=== PATIENT | male | born 1935 | race Caucasian/White ===

== ENCOUNTER 2018-12-13 14:51 | Inpatient (IN) | payer MEDICARE ==
[~2018-12-13] VITALS: Ht 170.2 cm; Wt 50.6 kg
[2018-12-13] VITALS (9 sets, daily range): BP systolic 174–192; BP diastolic 91–116
[2018-12-13 17:30] LABS: BASOPHILS % (AUTO) 0 % (0-10); EOSINOPHILS % (AUTO) 0 % (0-10); HEMATOCRIT 31 % (40-54); HEMOGLOBIN 9.6 G/DL (13.3-17.7); LYMPHOCYTES # (AUTO) 0.1 X 10^3 (1.0-4.0); LYMPHOCYTES % (AUTO) 1 % (12-44); MEAN CORPUSCULAR HEMOGLOBIN 30 PG (25-34); MEAN CORPUSCULAR HGB CONC 31 G/DL (32-36); MEAN CORPUSCULAR VOLUME 95 FL (80-99); MEAN PLATELET VOLUME 8.7 FL (7.4-10.4); MONOCYTES # (AUTO) 0.3 X 10^3 (0.0-1.0); MONOCYTES % (AUTO) 3 % (0-12); NEUTROPHILS # (AUTO) 7.4 X 10^3 (1.8-7.8); NEUTROPHILS % (AUTO) 95 % (42-75); PLATELET COUNT 290 10^3/uL (130-400); RED BLOOD COUNT 3.24 10^6/uL (4.35-5.85); RED CELL DISTRIBUTION WIDTH 14.5 % (10.0-14.5); WHITE BLOOD COUNT 7.8 10^3/uL (4.3-11.0)
--- NOTE | 2018-12-13 17:40 | Diagnostic Imaging Report ---
EXAM: CHEST 1 VIEW, AP/PA ONLY INDICATION: Left lower quadrant pneumonia. COMPARISON: None. FINDINGS: Normal heart size and pulmonary vascularity. Calcified aorta. Bilateral calcified granulomas. No dense consolidation, pleural effusion or pneumothorax. No acute osseous findings. IMPRESSION: No acute cardiopulmonary findings. Dictated by: Dictated on workstation # [id number]
[2018-12-13 17:50] LABS: ALANINE AMINOTRANSFERASE 8 U/L (0-55); ALBUMIN 3.2 GM/DL (3.2-4.5); ALKALINE PHOSPHATASE 73 U/L (40-136); BILIRUBIN,TOTAL 0.2 MG/DL (0.1-1.0); BUN/CREATININE RATIO 14; CALCIUM 8.7 MG/DL (8.5-10.1); CARBON DIOXIDE 21 MMOL/L (21-32); CHLORIDE 99 MMOL/L (98-107); CREATININE SERUM 0.98 MG/DL (0.60-1.30); GFR ESTIMATED > 60; GLUCOSE 109 MG/DL (70-105); POTASSIUM 4.1 MMOL/L (3.6-5.0); SODIUM 132 MMOL/L (135-145); TOTAL PROTEIN 6.2 GM/DL (6.4-8.2)
[2018-12-13 17:54] LABS: BAND NEUTROPHILS 5 %; BASOPHILS % (MANUAL) 0 %; EOSINOPHILS % (MANUAL) 0 %; LYMPHOCYTES % (MANUAL) 2 %; MONOCYTES % (MANUAL) 4 %; NEUTROPHILS % (MANUAL) 89 %; RBC MORPH NORMAL
[2018-12-13] MEDS ORDERED: ASPI-586 PO (18:44)
[2018-12-13] MEDS ORDERED: FENT1PAT58 TD (18:44)
[2018-12-13] MEDS ORDERED: HYDR-3820 PO (18:44)
[2018-12-13] MEDS ORDERED: ONDA8TAB13 PO (18:44)
[2018-12-13] MEDS ORDERED: ATOR10TA66 PO (18:44)
[2018-12-13] MEDS ORDERED: POTA20TA15 PO (18:44)
[2018-12-13] MEDS ORDERED: FENO145T37 PO (18:44)
[2018-12-13] MEDS ORDERED: FLUT9.9S NS (18:44)
[2018-12-13] MEDS ORDERED: FLUT1DIS26 IH (18:44)
[2018-12-13] MEDS ORDERED: LISI-556 PO (18:44)
[2018-12-13] MEDS ORDERED: AZITHROMYCIN INJECTION 500 MG in NS (IVPB) 250 ML IV ONE (18:45)
[2018-12-13] MEDS ORDERED: fentaNYL PATCH 50 MCG (DURAGESIC) TD SCH (19:00)
--- NOTE | 2018-12-13 20:31 | Progress Note-Hospitalist ---
Progress Note 83 yo male accepted from [facility] with exacerbation of COPD, with LLL pneumonia on CT. Has home O2 and now requiring more O2 and febrile with elevated WBC. Needs inpatient for IV abx and further treatment and evaluation. YEVGENIY MOODY MD Dec 13, 2018 20:31
[2018-12-13] MEDS ORDERED: lisINopril 5 MG (PRINIVIL) TABLET PO ONE (20:45)
[2018-12-13] MEDS ORDERED: ATORVASTATIN 10 MG (LIPITOR) TABLET PO SCH (21:00)
[2018-12-13] MEDS ORDERED: RT-ALBUTEROL/IPRATROPIUM 3 ML (DUONEB) VIAL INH PRN (21:00)
[2018-12-13] MEDS ORDERED: cefTRIAXone FOR IV USE 1,000 MG in NS (IVPB) 50 ML IV SCH (21:00)
[2018-12-13] MEDS: HYDROcodone/APAP 10 MG/325 MG (LORTAB) TAB PO PRN (21:27)
[2018-12-13] MEDS: lisINopril 5 MG (PRINIVIL) TABLET PO SCH (21:45)
[2018-12-13] MEDS: hydrALAZINE (APESOLINE) 20 MG/ML VIAL IV PRN (23:32)
[2018-12-14] VITALS (33 sets, daily range): BP systolic 118–203; BP diastolic 65–139
[2018-12-14] MEDS ORDERED: methylPREDNISolone 40 MG/ML (Solu-MEDROL) VIAL IV SCH ×2 (00:45→03:30)
[2018-12-14] MEDS ORDERED: RT-ALBUTEROL/IPRATROPIUM 3 ML (DUONEB) VIAL INH PRN (01:00)
[2018-12-14] MEDS ORDERED: NS (IVPB) 50 ML ONE (01:13)
[2018-12-14] MEDS: DEXMEDETOMIDINE INJECTION 200 MCG in NS (IVPB) 50 ML IV SCH ×2 (01:29→13:26)
[2018-12-14 01:50] LABS: ABG BASE EXCESS -4.1 MMOL/L (-2.5-2.5); ABG OXYGEN SATURATION 99 % (94-100); ABG PCO2 33 MMHG (35-45); ABG PO2 121 MMHG (79-93); ABG TCO2 21.1 MMOL/L (21.0-31.0)
[2018-12-14 01:51] LABS: ALLENS TEST YES-POS; INSPIRED O2 30%; PATIENT TEMP 97.2; VENTILATOR NO
[2018-12-14] MEDS: RT-ALBUTEROL/IPRATROPIUM 3 ML (DUONEB) VIAL INH SCH ×6 (02:15→22:23)
[2018-12-14] MEDS ORDERED: DEXMEDETOMIDINE INJECTION 200 MCG in NS (IVPB) 50 ML IV SCH (03:45)
[2018-12-14 04:13] LABS: BASOPHILS % (AUTO) 0 % (0-10); EOSINOPHILS % (AUTO) 0 % (0-10); HEMATOCRIT 30 % (40-54); HEMOGLOBIN 9.4 G/DL (13.3-17.7); LYMPHOCYTES # (AUTO) 0.2 X 10^3 (1.0-4.0); LYMPHOCYTES % (AUTO) 3 % (12-44); MEAN CORPUSCULAR HEMOGLOBIN 30 PG (25-34); MEAN CORPUSCULAR HGB CONC 32 G/DL (32-36); MEAN CORPUSCULAR VOLUME 94 FL (80-99); MEAN PLATELET VOLUME 8.8 FL (7.4-10.4); MONOCYTES # (AUTO) 0.4 X 10^3 (0.0-1.0); MONOCYTES % (AUTO) 5 % (0-12); NEUTROPHILS # (AUTO) 7.7 X 10^3 (1.8-7.8); NEUTROPHILS % (AUTO) 92 % (42-75); PLATELET COUNT 307 10^3/uL (130-400); RED BLOOD COUNT 3.17 10^6/uL (4.35-5.85); RED CELL DISTRIBUTION WIDTH 14.8 % (10.0-14.5); WHITE BLOOD COUNT 8.3 10^3/uL (4.3-11.0)
[2018-12-14 04:30] LABS: BUN/CREATININE RATIO 20; CALCIUM 8.5 MG/DL (8.5-10.1); CARBON DIOXIDE 19 MMOL/L (21-32); CHLORIDE 99 MMOL/L (98-107); CREATININE SERUM 0.89 MG/DL (0.60-1.30); GFR ESTIMATED > 60; GLUCOSE 97 MG/DL (70-105); MAGNESIUM 1.4 MG/DL (1.8-2.4); PHOSPHORUS 2.6 MG/DL (2.3-4.7); POTASSIUM 3.7 MMOL/L (3.6-5.0); SODIUM 133 MMOL/L (135-145)
[2018-12-14] MEDS ORDERED: KCL 20 MEQ TAB (K-DUR) PO SCH (06:00)
[2018-12-14] MEDS ORDERED: MAGNESIUM 1 GM/100 ML IVPB 100 ML IV SCH (06:00)
[2018-12-14] MEDS ORDERED: POTASSIUM CL 10MEQ/50ML IVPB 50 ML IV SCH (06:00)
--- NOTE | 2018-12-14 06:55 | Pulmonary Consultation ---
History of Present Illness History of Present Illness Date of Consultation 12/14/18 06:50 Time Seen by Provider: 06:50 Date of Admission History of Present Illness 83yo with hx of oxygen dependent COPD directly admitted from [facility] secondary to SOB and increased oxygen requirement. Allergies and Home Medications Allergies Coded Allergies: No Known Drug Allergies (Unverified , 12/13/18) Home Medications Aspirin 81 Mg Tablet.dr, 81 MG PO DAILY Prescribed by: TOYIN FRANCIS on 12/13/181843 Atorvastatin Calcium 10 Mg Tablet, 10 MG PO HS Prescribed by: TOYIN FRANCIS on 12/13/181843 Fenofibrate Nanocrystallized 145 Mg Tablet, 145 MG PO DAILY Prescribed by: TOYIN FRANCIS on 12/13/181843 Fentanyl 1 Each Patch.td72, 50 MCG TD Q72H Prescribed by: TOYIN FRANCIS on 12/13/181843 Fluticasone Propionate 9.9 Ml Crosby.susp, 1 SPRAY NS DAILY 1 SPRAY EACH NARE DAILY Prescribed by: TOYIN FRANCIS on 12/13/181843 Fluticasone/Salmeterol 1 Each Blst.w.dev, 1 EACH IH BID Prescribed by: TOYIN FRANCIS on 12/13/181843 Hydrocodone/Acetaminophen 1 Each Tablet, 1 EACH PO Q6H PRN for PAIN-MODERATE Prescribed by: TOYIN FRANCIS on 12/13/181843 Lisinopril 5 Mg Tablet, 5 MG PO DAILY Prescribed by: TOYIN FRANCIS on 12/13/181843 Ondansetron 8 Mg Tab.rapdis, 8 MG PO PRN Prescribed by: TOYIN FRANCIS on 12/13/181843 Potassium Chloride 20 Meq Tab.er.prt, 20 MEQ PO DAILY Prescribed by: TOYIN FRANCIS on 12/13/181843 Past Bymvoey-Togdjs-Eeedom Hx Patient Social History Alcohol Use: Denies Use Recreational Drug Use: No Recent Hopitalizations: No Immunizations Up To Date Date of Influenza Vaccine: Sep 12, 2018 Seasonal Allergies Seasonal Allergies: No Past Medical History Surgeries: No Respiratory: Yes Pneumonia, COPD Currently Using CPAP: No Currently Using BIPAP: No Cardiac: Yes Neurological: No Genitourinary: Yes Prostate Problems Gastrointestinal: No Musculoskeletal: No Endocrine: No HEENT: Yes Hearing Impairment: Hard of Hearing Cancer: Yes Prostate, Bone Did You Recieve Any Treatments: Yes What Type of Treatment Did You: Chemotherapy, Radiation Psychosocial: No Integumentary: No Blood Disorders: No Adverse Reaction/Blood Tranf: No Sepsis Event Evaluation Height, Weight, BMI Height: 5'7.00" Weight: 116lbs. 0.0oz. 52.291036zv; 18.2 BMI Method: Exam Exam Vital Signs Date Time Temp Pulse Resp B/P (MAP) Pulse Ox O2 Delivery O2 Flow Rate FiO2 12/14/18 06:19 97 16 95 25.00 12/14/18 06:00 87 19 167/80 (109) 100 NIV Bilevel 30.00 12/14/18 05:00 95 22 171/83 (112) 100 NIV Bilevel 30.00 12/14/18 04:30 100 23 99 30.00 12/14/18 04:00 98 NIV Bilevel 30 12/14/18 04:00 93 15 148/73 (98) 100 NIV Bilevel 30.00 12/14/18 03:00 92 14 152/88 (109) 100 NIV Bilevel 30.00 12/14/18 02:16 93 20 100 30.00 12/14/18 02:00 91 9 153/67 (95) 100 NIV Bilevel 30.00 12/14/18 01:00 116 20 166/82 (110) 99 NIV Bilevel 30.00 12/14/18 01:00 108 12/14/18 00:20 106 26 100 40.00 12/14/18 00:00 98 Nasal Cannula 4.00 12/14/18 00:00 100 Nasal Cannula 5.00 12/14/18 00:00 111 21 144/65 (91) 100 NIV Bilevel 30.00 12/13/18 23:00 90 19 182/93 (122) 98 Nasal Cannula 2.00 12/13/18 22:00 95 15 183/92 (122) 98 Nasal Cannula 2.00 12/13/18 21:00 93 16 186/91 (122) 98 Nasal Cannula 2.00 12/13/18 20:30 98 Nasal Cannula 2.00 12/13/18 20:30 88 98 28 12/13/18 20:00 98 Nasal Cannula 4.00 12/13/18 20:00 106 19 192/93 (126) 100 Nasal Cannula 2.00 12/13/18 19:00 94 12/13/18 19:00 92 16 189/102 (131) 100 Nasal Cannula 4.00 12/13/18 17:39 90 12/13/18 17:38 Nasal Cannula 4.00 12/13/18 17:30 89 17 183/116 (138) 100 Nasal Cannula 4.00 12/13/18 17:15 96 15 188/102 (130) 100 Nasal Cannula 4.00 12/13/18 17:10 92 20 174/105 (128) 100 Nasal Cannula 4.00 I & O 12/14/18 07:00 Intake Total 151.5 ml Output Total 500 ml Balance -348.5 ml Height & Weight Height: 5'7.00" Weight: 116lbs. 0.0oz. 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
[2018-12-14] MEDS ORDERED: RT-ALBUTEROL/IPRATROPIUM 3 ML (DUONEB) VIAL INH SCH (07:00)
[2018-12-14] MEDS ORDERED: ONDANSETRON 8 MG (ZOFRAN) ORAL DISSOLVE TAB PO PRN (07:00)
--- NOTE | 2018-12-14 07:13 | Diagnostic Imaging Report ---
INDICATION: Dyspnea Portable upright AP view of the chest is obtained with comparison made study of 12/13/2018. FINDINGS: Heart size and pulmonary vascularity are within normal limits, and the lungs are clear, bilaterally. There are calcified granulomas in both lungs. IMPRESSION: Unremarkable chest. Dictated by: Dictated on workstation # [id number]
[2018-12-14] MEDS: methylPREDNISolone 40 MG/ML (Solu-MEDROL) VIAL IV SCH ×4 (08:34→23:05)
[2018-12-14] MEDS: lisINopril 5 MG (PRINIVIL) TABLET PO SCH (08:35)
[2018-12-14] MEDS: KCL 20 MEQ TAB (K-DUR) PO SCH (08:35)
[2018-12-14] MEDS: ASPIRIN 81 MG CHEW (CHILDREN'S ASA) PO SCH (08:35)
[2018-12-14] MEDS: FLUTICASONE NASAL SPRAY (FLONASE) 16 GM BTL NS SCH (08:36)
[2018-12-14] MEDS: MAGNESIUM 1 GM/100 ML IVPB 100 ML IV SCH ×2 (08:36→09:42)
[2018-12-14] MEDS: HYDROcodone/APAP 10 MG/325 MG (LORTAB) TAB PO PRN ×2 (08:36→16:25)
[2018-12-14] MEDS ORDERED: AZITHROMYCIN 250 MG TAB (ZITHROMAX) PO SCH (09:00)
--- NOTE | 2018-12-14 09:41 | History & Physical-Hospitalist ---
History of Present Illness HPI/Chief Complaint Pt is an 83yoCM with a PMH of emphysema on 2.5lpm chronically, metastatic prostate cancer, and HTN who presented to an outside ER due to SOB. He states this started 3-4 days ago and had to increase his inhaler use and his oxygen rate but despite this diud not improve. He became very SOB and decided to seek evaluation in the Er. His believes he developed a fever that night at as well. In the ER at [facility] he was found to have LLL pneumonia and meet sepsis criteria so was transferred here for admission. He states he is feeling better today and is now off of BiPAP. He has no other complaints at this time. Source: patient, family Date Seen 12/14/18 Time Seen by a Provider: 09:38 Attending Physician Salud Woo MD PCP Saroj Sanchez MD Referring Physician Date of Admission Dec 14, 2018 at 08:37 Home Medications & Allergies Home Medications Reviewed patient Home Medication Reconciliation performed by pharmacy medication reconciliations metal technician and/or nursing. Patients Allergies have been reviewed. Allergies Allergies Coded Allergies No Known Drug Allergies (Unverified12/13/18) Past Vhmzczp-Fpiyoh-Tkdkvm Hx Past Med/Social Hx: Reviewed Nursing Past Med/Soc Hx Patient Social History Marrital Status: Alcohol Use: Denies Use Recreational Drug Use: No Smoking Status: Former Smoker Cigaretts per day: 30 Former Smoker, Quit: Dec 10, 2018 Physical Abuse Screen: No Sexual Abuse: No Recent Hopitalizations: No Immunizations Up To Date Date of Influenza Vaccine: Sep 12, 2018 Seasonal Allergies Seasonal Allergies: No Past Medical History Respiratory: Emphysema Currently Using CPAP: No Currently Using BIPAP: No Cardiac: Hypertension Genitourinary: Prostate Problems Hearing Impairment: Hard of Hearing Cancer: Prostate, Bone Did You Recieve Any Treatments: Yes What Type of Treatment Did You: Chemotherapy, Radiation History of Blood Disorders: No Adverse Reaction to Blood Griffin: No Family History Reviewed Nursing Family Hx Review of Systems Constitutional: fever EENTM: No blurred vision, No double vision, No nose congestion, No throat pain Respiratory: see HPI, cough, dyspnea on exertion, short of breath Cardiovascular: No chest pain, No edema, No palpitations Gastrointestinal: No abdominal pain, No constipation, No diarrhea, No nausea, No vomiting Genitourinary: No dysuria, No frequency Musculoskeletal: No joint pain, No muscle pain Skin: No lesions, No rash Psychiatric/Neurological: Denies Headache, Denies Numbness, Denies Tingling Physical Exam Physical Exam Vital Signs Vital Signs - First Documented 12/13/18 12/13/18 12/13/18 17:10 20:00 20:30 Temp 97.8 Pulse 92 Resp 20 B/P (MAP) 174/105 (128) Pulse Ox 100 O2 Delivery Nasal Cannula O2 Flow Rate 4.00 FiO2 28 Capillary Refill : Height, Weight, BMI Height: 5'7.00" Weight: 116lbs. 0.0oz. 52.286037kl; 18.2 BMI Method: General Appearance: Chronically ill, Cachetic HEENT: PERRL/EOMI, Moist Mucous Membranes Neck: Non Tender, Supple Respiratory: Crackles (bilateral), Other (on Vapotherm) Cardiovascular: Regular Rate, Rhythm, No Murmur Gastrointestinal: Normal Bowel Sounds, Non Tender, Soft Extremity: Normal Capillary Refill, No Calf Tenderness Neurologic/Psychiatric: Alert, Oriented x3, Normal Mood/Affect Skin: Normal Color, Warm/Dry Results Results/Procedures Labs Laboratory Tests 12/13/18 17:20 12/14/18 03:25 Patient resulted labs reviewed. Assessment/Plan Admission Diagnosis Acute Respiratory failure Admission Status: Inpatient Order (span 2 midnights) Reason for Inpatient Admission: On BiPAP, had multiple comorbidities including emphysema will require more than two midnights for stabilization Diagnosis/Problems Diagnosis/Problems (1) Acute respiratory failure Status: Acute Assessment & Plan: Acute on Chronic respiratory failure Just taken off BiPAP and on Vapotherm Pulm consulted, appreciate recs Continue on Solu-Medrol Qualifiers: Respiratory failure complication: hypoxia Qualified Codes: J96.01 - Acute respiratory failure with hypoxia (2) Pneumonia Status: Acute Assessment & Plan: Questionable per our CXR Abx stopped by Dr Ana Lilia Santos consulted, appreciate recs Qualifiers: Pneumonia type: due to unspecified organism Laterality: left Lung location: lower lobe of lung Qualified Codes: J18.1 - Lobar pneumonia, unspecified organism (3) COPD (chronic obstructive pulmonary disease) Assessment & Plan: On 2.5lpm at baseline Pulm consulted, appreciate recs Qualifiers: COPD type: emphysema Emphysema type: unspecified Qualified Codes: J43.9 - Emphysema, unspecified (4) Essential (primary) hypertension Assessment & Plan: Resume home meds (5) Prostate cancer metastatic to bone Assessment & Plan: Follows with oncology in [place] On q6 month Lupron and monthly chemo Clinical Quality Measures DVT/VTE Risk/Contraindication: Risk Factor Score Per Nursin RFS Level Per Nursing on Admit: 4+=Very High ATTILA HAMLIN MD Dec 14, 2018 09:41
[2018-12-14] MEDS ORDERED: FLUT1DIS26 IH (09:49)
[2018-12-14] MEDS ORDERED: CALC-654 PO (09:49)
[2018-12-14] MEDS ORDERED: POTA-51 PO (09:49)
[2018-12-14] MEDS ORDERED: FERR-84 PO (09:49)
[2018-12-14] MEDS ORDERED: HYDR-3820 PO (09:49)
[2018-12-14] MEDS ORDERED: ONDA8TAB12 PO (09:49)
[2018-12-14] MEDS ORDERED: ASCO500T6 PO (09:49)
[2018-12-14] MEDS ORDERED: FENO145T37 PO (09:49)
[2018-12-14] MEDS ORDERED: FLUT16SP22 NS (09:49)
[2018-12-14] MEDS ORDERED: ASPI-983 PO (09:49)
[2018-12-14] MEDS ORDERED: FENT1PAT9 TD (09:49)
[2018-12-14] MEDS ORDERED: ATOR10TA66 PO (09:49)
[2018-12-14] MEDS ORDERED: ALBU18HF2 INH (09:49)
[2018-12-14] MEDS ORDERED: CHOL10007 PO (09:49)
[2018-12-14] MEDS ORDERED: LISI-556 PO (09:49)
--- NOTE | 2018-12-14 09:50 | NUR ---
WENT OVER EXT MED HX WITH THE PATIENTS , SHE VERIFIED HOW HE TAKES THEM AND LISTED HIS OTC MEDS: ASPIRIN 81MG DAILY CALCIUM DAILY VITAMIN D DAILY IRON DAILY VITAMIN C DAILY
[2018-12-14] MEDS ORDERED: fentaNYL PATCH 50 MCG (DURAGESIC) TD SCH ×2 (10:00)
--- NOTE | 2018-12-14 11:05 | NUR ---
Pastoral Care Visit, pt asleep.
--- NOTE | 2018-12-14 12:21 | NUR ---
1215 UPON ENTERING ROOM, PATIENT VERY SOB, INCREASED WORK OF BREATHING, ACCESSORY MUSCLE USE. SILVESTRE RT RESTARTED BIPAP AND PRECEDEX GTT WAS RESTARTED AT 0.4MCG FOR PATIENT TO TOLERATE BIPAP. WILL CONTINUE TO MONITOR
[2018-12-14] MEDS: hydrALAZINE (APESOLINE) 20 MG/ML VIAL IV PRN ×2 (16:25→23:02)
[2018-12-14] MEDS: RT-ADVAIR HFA 115/21 MCG PER PUFF IH SCH (18:24)
[2018-12-14] MEDS ORDERED: ATORVASTATIN 10 MG (LIPITOR) TABLET PO SCH (21:00)
[2018-12-14] MEDS ORDERED: FENOFIBRATE 134 MG (LOFIBRA) CAPSULE PO SCH (21:00)
[2018-12-15] VITALS (18 sets, daily range): BP systolic 120–198; BP diastolic 54–110
--- NOTE | 2018-12-15 00:26 | NUR ---
1810--Pt increased Shortness of Breath, multiple interventions tried previously (see documentation in interventions), E-ICU contacted, orders received 0015--E-ICU contacted this RN for follow up, pt care discussed, pt appears improved slightly at this time, will continue to monitor
[2018-12-15] MEDS: RT-ALBUTEROL/IPRATROPIUM 3 ML (DUONEB) VIAL INH SCH ×4 (02:21→16:38)
[2018-12-15] MEDS: DEXMEDETOMIDINE INJECTION 200 MCG in NS (IVPB) 50 ML IV SCH (03:29)
[2018-12-15 04:03] LABS: BASOPHILS % (AUTO) 0 % (0-10); EOSINOPHILS % (AUTO) 0 % (0-10); HEMATOCRIT 28 % (40-54); LYMPHOCYTES # (AUTO) 0.3 X 10^3 (1.0-4.0); LYMPHOCYTES % (AUTO) 2 % (12-44); MEAN CORPUSCULAR HEMOGLOBIN 29 PG (25-34); MEAN CORPUSCULAR HGB CONC 32 G/DL (32-36); MEAN CORPUSCULAR VOLUME 92 FL (80-99); MEAN PLATELET VOLUME 8.8 FL (7.4-10.4); MONOCYTES # (AUTO) 0.6 X 10^3 (0.0-1.0); MONOCYTES % (AUTO) 5 % (0-12); NEUTROPHILS # (AUTO) 10.5 X 10^3 (1.8-7.8); NEUTROPHILS % (AUTO) 93 % (42-75); PLATELET COUNT 341 10^3/uL (130-400); RED BLOOD COUNT 3.08 10^6/uL (4.35-5.85); RED CELL DISTRIBUTION WIDTH 15.1 % (10.0-14.5); WHITE BLOOD COUNT 11.3 10^3/uL (4.3-11.0)
[2018-12-15 04:25] LABS: BUN/CREATININE RATIO 22; CALCIUM 8.3 MG/DL (8.5-10.1); CARBON DIOXIDE 19 MMOL/L (21-32); CHLORIDE 98 MMOL/L (98-107); CREATININE SERUM 0.87 MG/DL (0.60-1.30); GFR ESTIMATED > 60; GLUCOSE 111 MG/DL (70-105); MAGNESIUM 2.1 MG/DL (1.8-2.4); PHOSPHORUS 1.8 MG/DL (2.3-4.7); POTASSIUM 3.6 MMOL/L (3.6-5.0); SODIUM 130 MMOL/L (135-145)
--- NOTE | 2018-12-15 04:54 | Pulmonary Progress Note ---
Subjective Time Seen by a Provider: 05:15 Subjective/Events-last exam PT currently on Vapotherm secondary to increased WOB last night. It is only set at 21% oxygen. Sepsis Event Evaluation Height, Weight, BMI Height: 5'7.00" Weight: 116lbs. 0.0oz. 52.313291wu; 18.2 BMI Method: Focused Exam Lactate Level 12/13/18 17:20: Lactic Acid Level 1.08 Exam Exam Vital Signs Date Time Temp Pulse Resp B/P (MAP) Pulse Ox O2 Delivery O2 Flow Rate FiO2 12/15/18 04:00 74 18 132/62 (85) 97 Vapotherm 21.00 40.00 12/15/18 04:00 Vapotherm 40.00 21 12/15/18 03:00 98 16 130/74 (92) 93 Vapotherm 21.00 40.00 12/15/18 02:22 100 Vapotherm 40.00 21 12/15/18 02:00 81 20 145/66 (92) Vapotherm 21.00 40.00 12/15/18 01:00 103 12/15/18 01:00 108 20 120/68 (85) Vapotherm 21.00 40.00 12/15/18 00:00 Vapotherm 40.00 21 12/15/18 00:00 117 26 151/54 (86) 94 Vapotherm 21.00 40.00 12/14/18 23:45 Vapotherm 21.00 40.00 12/14/18 23:38 97.4 Vapotherm 21.00 25.00 12/14/18 23:00 92 16 137/74 (95) 100 NIV Bilevel 21.00 12/14/18 22:24 99 18 100 21.00 12/14/18 22:05 Vapotherm 21.00 25.00 12/14/18 22:00 103 15 191/84 (119) 100 Vapotherm 25.00 25.00 12/14/18 21:00 99 16 160/94 (116) 100 Vapotherm 25.00 25.00 12/14/18 20:19 Vapotherm 21.00 20.00 12/14/18 20:00 91 16 188/92 (124) 100 Vapotherm 25.00 25.00 12/14/18 20:00 Vapotherm 25.00 25 12/14/18 19:30 97.4 Vapotherm 25.00 25.00 12/14/18 19:17 91 12/14/18 19:00 92 17 163/82 (109) 100 Vapotherm 25.00 25.00 12/14/18 18:37 100 Vapotherm 25.00 25 12/14/18 18:33 Vapotherm 25.00 25.00 12/14/18 18:30 100 Vapotherm 30.00 25 12/14/18 18:30 92 15 150/77 (101) 100 Vapotherm 25.00 30.00 12/14/18 18:00 95 17 168/84 (112) 100 Vapotherm 25.00 30.00 12/14/18 17:00 89 18 118/94 (102) 100 Vapotherm 25.00 30.00 12/14/18 16:30 87 17 170/90 (116) 100 Vapotherm 25.00 30.00 12/14/18 16:15 87 21 174/117 (136) 100 Vapotherm 25.00 30.00 12/14/18 16:12 Vapotherm 25.00 30.00 12/14/18 16:00 98 25 203/139 (160) 100 Vapotherm 25.00 40.00 12/14/18 16:00 95 Vapotherm 15.00 25 12/14/18 15:51 Vapotherm 25.00 40.00 12/14/18 15:50 99 Vapotherm 40.00 25 12/14/18 15:00 81 15 158/78 (104) 100 Vapotherm 21.00 10.00 12/14/18 14:47 96 21 95 25.00 12/14/18 14:00 88 14 160/80 (106) 100 Vapotherm 21.00 10.00 12/14/18 13:00 98.6 12/14/18 13:00 88 13 163/81 (108) 100 Vapotherm 21.00 10.00 12/14/18 12:58 89 12/14/18 12:34 91 14 99 25.00 12/14/18 12:00 93 16 183/85 (117) 96 Vapotherm 21.00 10.00 12/14/18 12:00 95 NIV Bilevel 1/14/19 11:14 Vapotherm 21.00 10.00 12/14/18 11:04 99 Vapotherm 15.00 25 12/14/18 11:00 96 18 179/93 (121) 99 Vapotherm 25.00 15.00 12/14/18 10:00 95 19 164/82 (109) Vapotherm 25.00 15.00 12/14/18 09:00 98 19 146/73 (97) 100 Vapotherm 25.00 15.00 12/14/18 08:00 96 16 155/73 (100) 100 Vapotherm 25.00 15.00 12/14/18 08:00 98 Vapotherm 15.00 25 12/14/18 07:15 100 Vapotherm 15.00 30 12/14/18 07:00 98 12/14/18 07:00 95 14 157/75 (102) 100 Vapotherm 25.00 15.00 12/14/18 06:19 97 16 95 25.00 12/14/18 06:00 87 19 167/80 (109) 100 NIV Bilevel 30.00 12/14/18 05:00 95 22 171/83 (112) 100 NIV Bilevel 30.00 I & O 12/15/18 06:59 Intake Total 1102 ml Output Total 1950 ml Balance -848 ml Height & Weight Height: 5'7.00" Weight: 116lbs. 0.0oz. 52.365014xf; 18.2 BMI Method: General Appearance: Anxious, Chronically ill, Cachetic, Mild Distress HEENT: PERRL/EOMI, Moist Mucous Membranes Neck: Non Tender, Supple Respiratory: Accessory Muscle Use, Crackles (bilateral), Decreased Breath Sounds, Respiratory Distress, Other (on Vapotherm) Cardiovascular: Regular Rate, Rhythm, No Murmur Extremity: Normal Capillary Refill, No Calf Tenderness Neurologic/Psychiatric: Alert, Oriented x3, Normal Mood/Affect Skin: Normal Color, Warm/Dry Results Lab Laboratory Tests 12/13/18 17:20 12/14/18 03:25 12/15/18 03:30 Assessment/Plan Assessment/Plan Acute on chronic respiratory failure -BiPAP PRN and Vapotherm -Check ABG -D/C precedex. Will add morphine for air hunger. 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 PT has increased WOB and intubation/ventilation was discussed with patient.I discussed options with patient and including intubation vs DNR. They have elected to be DNR/DNI. They want more information on hospice care. I will consult hospice for education. 60min ICU time spent discussing pt's current condition, CODE status and plan of care with patient, family, and medical team. Critical Care: Critically Ill Patient Time spent with patient (mins): 60 TAMIKA RADFORD DO Dec 15, 2018 04:54
[2018-12-15] MEDS ORDERED: methylPREDNISolone 125 MG (Solu-MEDROL) VIAL IVP ONE (05:00)
[2018-12-15] MEDS ORDERED: morphine INJ 4 MG/ML 1 ML (VIAL/SYRINGE) IVP PRN (05:00)
[2018-12-15] MEDS ORDERED: POTASSIUM PHOSPHATE INJ 30 MM in NS (IVPB) 250 ML IV ONE (05:00)
[2018-12-15 05:05] LABS: ABG BASE EXCESS -0.9 MMOL/L (-2.5-2.5); ABG OXYGEN SATURATION 97 % (94-100); ABG PCO2 28 MMHG (35-45); ABG PO2 70 MMHG (79-93); ABG TCO2 22.9 MMOL/L (21.0-31.0)
[2018-12-15 05:07] LABS: INSPIRED O2 21% 40L VAPO; PATIENT TEMP 96.8; VENTILATOR NO
[2018-12-15] MEDS: methylPREDNISolone 40 MG/ML (Solu-MEDROL) VIAL IV SCH ×3 (05:26→16:35)
[2018-12-15] MEDS: RT-ADVAIR HFA 115/21 MCG PER PUFF IH SCH (06:54)
--- NOTE | 2018-12-15 07:39 | Progress Note-Hospitalist ---
Subjective HPI/CC On Admission Date Seen by Provider: Dec 15, 2018 Time Seen by Provider: 07:34 Pt is an 83yoCM with a PMH of emphysema on 2.5lpm chronically, metastatic prostate cancer, and HTN who presented to an outside ER due to SOB. He states this started 3-4 days ago and had to increase his inhaler use and his oxygen rate but despite this diud not improve. He became very SOB and decided to seek evaluation in the Er. His believes he developed a fever that night at as well. In the ER at [facility] he was found to have LLL pneumonia and meet sepsis criteria so was transferred here for admission. He states he is feeling better today and is now off of BiPAP. He has no other complaints at this time. Subjective/Events-last exam Pt states still short of breath. Work of breath increased. Focused Exam Lactate Level 12/13/18 17:20: Lactic Acid Level 1.08 Objective Exam Vital Signs Vital Signs Date Time Temp Pulse Resp B/P (MAP) Pulse Ox O2 Delivery O2 Flow Rate FiO2 12/15/18 06:55 100 Vapotherm 40.00 21 12/15/18 06:00 80 21 138/110 (119) 12/14/18 23:38 97.4 Capillary Refill : General Appearance: Chronically ill, Mild Distress Respiratory: Accessory Muscle Use Cardiovascular: Regular Rate, Rhythm, No Murmur Gastrointestinal: Normal Bowel Sounds, Non Tender, Soft Neurologic/Psychiatric: Alert, Oriented x3 Results/Procedures Lab Laboratory Tests 12/15/18 03:30 Patient resulted labs reviewed. Assessment/Plan Assessment and Plan Assess & Plan/Chief Complaint Acute Respiratory Failure Critical Care Critical Care: Critically Ill Patient Diagnosis/Problems Diagnosis/Problems (1) Acute respiratory failure Status: Acute Assessment & Plan: Acute on Chronic respiratory failure Still has increased work of breathing Discussed options of care and patient and interested in hospice education states he just wants to go home Hospice consulted for education Pulm consulted, appreciate recs Qualifiers: Respiratory failure complication: hypoxia Qualified Codes: J96.01 - Acute respiratory failure with hypoxia (2) Pneumonia Status: Acute Assessment & Plan: Questionable per our CXR Abx stopped by Dr Ana Lilia Santos consulted, appreciate recs Qualifiers: Pneumonia type: due to unspecified organism Laterality: left Lung location: lower lobe of lung Qualified Codes: J18.1 - Lobar pneumonia, unspecified organism (3) COPD (chronic obstructive pulmonary disease) Assessment & Plan: On 2.5lpm at baseline Pulm consulted, appreciate recs Qualifiers: COPD type: emphysema Emphysema type: unspecified Qualified Codes: J43.9 - Emphysema, unspecified (4) Essential (primary) hypertension Assessment & Plan: Resume home meds (5) Prostate cancer metastatic to bone Assessment & Plan: Follows with oncology in [place] On q6 month Lupron and monthly chemo (6) Counseling regarding end of life decision making Assessment & Plan: Discussed with patient and end stage emphysema and recommendation to transition to hospice and comfort measures Discussed with Dr Sung who is in agreement Hospice consulted for education If patient elects to enroll in hospice attempt to DC home today with hospice Clinical Quality Measures DVT/VTE Risk/Contraindication: Risk Factor Score Per Nursin RFS Level Per Nursing on Admit: 4+=Very High ATTILA HAMLIN MD Dec 15, 2018 07:39
[2018-12-15] MEDS: FLUTICASONE NASAL SPRAY (FLONASE) 16 GM BTL NS SCH (08:47)
[2018-12-15] MEDS: ASPIRIN 81 MG CHEW (CHILDREN'S ASA) PO SCH (08:48)
[2018-12-15] MEDS: KCL 20 MEQ TAB (K-DUR) PO SCH (08:48)
[2018-12-15] MEDS: morphine INJ 4 MG/ML 1 ML (VIAL/SYRINGE) IVP PRN ×5 (08:50→17:10)
[2018-12-15] MEDS: HYDROcodone/APAP 10 MG/325 MG (LORTAB) TAB PO PRN (08:53)
[2018-12-15] MEDS ORDERED: lisINopril 5 MG (PRINIVIL) TABLET PO SCH (09:00)
[2018-12-15] MEDS: hydrALAZINE (APESOLINE) 20 MG/ML VIAL IV PRN ×2 (09:03→16:35)
--- NOTE | 2018-12-15 09:22 | Diagnostic Imaging Report ---
INDICATION: Dyspnea. TECHNIQUE: Frontal view of the chest. COMPARISON: 12/14/2018 FINDINGS: Lung volumes are normal. No focal consolidation is seen. There are small densities in the lungs bilaterally consistent with calcified granulomas. No pleural effusion or pneumothorax is seen. The cardiac silhouette is normal in size. There is aortic atherosclerosis. There are degenerative changes in the shoulders and spine. IMPRESSION: No acute pulmonary abnormality seen. Dictated by: Dictated on workstation # [id number]
--- NOTE | 2018-12-15 10:38 | NUR ---
Palliative Care consult received. Patient is laying in bed and the is reclined in chair, both are agreeable to a visit. Spoke to them about the hospice benefit. He has severe emphysema and COPD. He also has metastatic Ca of prostate and bone for which he sees Dr. Antonio for injection and infusions. is wanting to talk with Dr. Antonio. She may then want to talk to hospice agencies after this acute illness is improved and she speaks with Dr. Antonio. Palliative Care will continue to follow and offer assist as needed.
[2018-12-15] MEDS ORDERED: LORazepam INJ 2 MG/ML (ATIVAN) VIAL ONE (11:40)
[2018-12-15] MEDS ORDERED: LORazepam INJ 2 MG/ML (ATIVAN) VIAL IVP PRN (11:45)
[2018-12-15] MEDS ORDERED: LORA2ORA PO (13:06)
[2018-12-15] MEDS ORDERED: MORP100S3 PO (13:06)
--- NOTE | 2018-12-15 13:17 | NUR ---
PALLIATIVE CARE RN called back to patient room as they had made a decision to just go home with Hospice and be comfortable. Patient verbalized agreement with this POC. has chosen [facility]. They have been notified and I have sent clinical information. Out of Hospital DNR is signed with copies given to patient's . [employer] will notify me when they have all in place and are ready for dispatch of EMS.
[2018-12-15] MEDS ORDERED: SCOPOLAMINE 1.5 MG (TRANSDERM-SCOP) PATCH TD NR (14:00)
[2018-12-15] MEDS: LORazepam INJ 2 MG/ML (ATIVAN) VIAL IVP PRN ×2 (14:00→16:02)
--- NOTE | 2018-12-15 14:05 | Discharge Summary-Hospitalist ---
Diagnosis/Chief Complaint Date of Admission Dec 14, 2018 at 08:37 Date of Discharge Discharge Date: Dec 15, 2018 Admission Diagnosis Acute Respiratory failure Discharge Diagnosis (1) Acute respiratory failure Status: Acute Assessment & Plan: Acute on Chronic respiratory failure Still has increased work of breathing Discussed options of care and patient and interested in hospice education states he just wants to go home Hospice consulted for education Pulm consulted, appreciate recs (2) Pneumonia Status: Acute Assessment & Plan: Questionable per our CXR Abx stopped by Dr Sung Pulm consulted, appreciate recs (3) COPD (chronic obstructive pulmonary disease) Assessment & Plan: On 2.5lpm at baseline Pulm consulted, appreciate recs (4) Essential (primary) hypertension Assessment & Plan: Resume home meds (5) Prostate cancer metastatic to bone Assessment & Plan: Follows with oncology in [place] On q6 month Lupron and monthly chemo (6) Counseling regarding end of life decision making Assessment & Plan: Discussed with patient and end stage emphysema and recommendation to transition to hospice and comfort measures Discussed with Dr Sung who is in agreement Hospice consulted for education If patient elects to enroll in hospice attempt to DC home today with hospice Discharge Summary Discharge Physical Exam Allergies: Coded Allergies: No Known Drug Allergies (Unverified , 12/13/18) Vitals & I&Os Vital Signs Date Time Temp Pulse Resp B/P (MAP) Pulse Ox O2 Delivery O2 Flow Rate FiO2 12/15/18 17:00 105 15 129/71 (90) 100 Nasal Cannula 3.00 12/15/18 16:00 97.2 12/15/18 06:55 21 General Appearance: Chronically ill, Cachetic Neurologic/Psychiatric: Alert, Oriented x3 Hospital Course Pt was admitted from outside ER in respiratory failure from presumed pneumonia. CXR here was negative for pneumonia and symptoms were likely due to COPD exacerbation. He was treated with BiPAP and was able to be titrated off with scheduled breathing treatments and steroids. Despite aggressive treatment he did not improve and his work of breathing increased despite needing minimal oxygen supplementation. He declined resumption of treatment with BiPAP or intubation. Discussions were had with both he and his regarding options for continued care and symptom management. They elected hospice and he requested discharge home. The enrolled with [facility] for hospice care. He was discharged home via EMS. Labs (last 24 hrs) Microbiology 12/13/18 MRSA Screen - Final, Complete MRSA not isolated Patient resulted labs reviewed. Discussion & Recommendations Discharge Planning: >30 minutes discharge planning Discharge Home Medications: Active Scripts Active Lorazepam Intensol (Lorazepam) 2 Mg/1 Ml Oral.conc 2 Mg PO Q2H PRN Morphine Sulfate Concentrate 20mg/ml (Morphine Sulfate) 100 Mg/5 Ml Solution 5 Mg PO Q2H PRN Reported Hydrocodon-Acetaminophn 10-325 (Hydrocodone/Acetaminophen) 1 Each Tablet 1 Tab PO Q4H PRN Fluticasone Propionate 16 Gm [place].susp 2 Sprays NS DAILY PRN Atorvastatin Calcium 10 Mg Tablet 10 Mg PO HS Potassium Chloride 20 Meq Tablet.er 20 Meq PO DAILY Lisinopril 5 Mg Tablet 5 Mg PO DAILY Advair 250-50 Diskus (Fluticasone/Salmeterol) 1 Each Blst.w.dev 1 Puff IH BID Fenofibrate (Fenofibrate Nanocrystallized) 145 Mg Tablet 145 Mg PO DAILY Ondansetron HCl 8 Mg Tablet 8 Mg PO Q8H PRN Iron (Ferrous Sulfate) 325 Mg Tablet 325 Mg PO DAILY Vitamin C (Ascorbic Acid) 500 Mg Tablet 500 Mg PO DAILY Vitamin D3 (Cholecalciferol (Vitamin D3)) 1,000 Unit Capsule 1,000 Unit PO DAILY Calcium 500 + D Tablet (Calcium Carbonate/Vitamin D3) 1 Each Tablet 1 Tab PO DAILY Aspirin EC (Aspirin) 81 Mg Tablet.dr 81 Mg PO DAILY Fentanyl Patch 50 MCG (Fentanyl) 1 Each Patch.td72 50 Mcg TD Q72H Ventolin Hfa (Albuterol Sulfate) 18 Gm Hfa.aer.ad 2 Puff INH Q4H PRN Instructions to patient/family Please see electronic discharge instructions given to patient. Clinical Quality Measures DVT/VTE Risk/Contraindication: Risk Factor Score Per Nursin RFS Level Per Nursing on Admit: 4+=Very High Problem Qualifiers (1) Acute respiratory failure: Respiratory failure complication: hypoxia Qualified Codes: J96.01 - Acute respiratory failure with hypoxia (2) Pneumonia: Pneumonia type: due to unspecified organism Laterality: left Lung location: lower lobe of lung Qualified Codes: J18.1 - Lobar pneumonia, unspecified organism (3) COPD (chronic obstructive pulmonary disease): COPD type: emphysema Emphysema type: unspecified Qualified Codes: J43.9 - Emphysema, unspecified ATTILA HAMLIN MD Dec 15, 2018 14:05
--- NOTE | 2018-12-15 15:11 | NUR ---
Pastoral care visit, contacted at bedside who shared the plan to take home on hospice, I offered prayer and support as she shared her story.
--- NOTE | 2018-12-15 17:37 | NUR ---
[facility] ems here for transport. pt is unresponsive and retracting pt was given 2 mg morphine 1 about 30 minutes before ems arrived and one on dispatch for comfort.
[2018-12-18] MEDS ORDERED: SCOPOLAMINE PATCH REMOVAL TP NR (14:00)
== END 2018-12-15 17:37 | disposition hospice, home (50) | DRG 189 ==
LOC: EDSTATUS 14:51 → UNDOADMOB 17:03 → ICU 17:03 → INTOOBSV 12-14 08:37 → OBSVTOIN 12-14 08:37 → ICU 12-14 15:41 → UNDODISIN 12-15 17:37
PROVIDERS: ADMIT Internal Medicine; ATTEND Internal Medicine
DX: J96.20 Acute and chronic respiratory failure, unspecified whether with hypoxia or hypercapnia (principal); J18.9 Pneumonia, unspecified organism; J43.9 Emphysema, unspecified; C61 Malignant neoplasm of prostate; C79.51 Secondary malignant neoplasm of bone; I69.351 Hemiplegia and hemiparesis following cerebral infarction affecting right dominant side; I10 Essential (primary) hypertension; Z66 Do not resuscitate; Z51.5 Encounter for palliative care; E87.6 Hypokalemia; E83.39 Other disorders of phosphorus metabolism; Z79.82 Long term (current) use of aspirin; Z99.81 Dependence on supplemental oxygen; Z87.891 Personal history of nicotine dependence; Z92.21 Personal history of antineoplastic chemotherapy; Z92.3 Personal history of irradiation
CPT/HCPCS: 36415; 71045; 80048; 80053; 82805; 83605; 83735; 84100; 84443; 85007; 85025; 85027; 87081; 93005; 94640; 94660; 94664; G0378